=== PATIENT | male | born 1970 | race Caucasian/White ===

== ENCOUNTER 2016-12-27 21:26 | Emergency (ER) | payer OTHER ==
[~2016-12-27] VITALS: Ht 185.4 cm; Wt 114.8 kg
[2016-12-27] MEDS ORDERED: fentaNYL PF VIAL 100 MCG/2 ML VIAL IV ONE (22:00)
[2016-12-27] MEDS ORDERED: ONDANSETRON PF 4 MG/2 ML VIAL. IV ONE (22:00)
[2016-12-27 22:25] LABS: BASO # 0.1 x10^3/uL (0.0-0.2); BASO % 1 % (0-3); EOS % 1 % (0-3); HEMOGLOBIN 14.9 g/dL (13.0-17.5); LYMPH # 2.4 x10^3/uL (1.0-4.8); LYMPH % 23 % (24-48); MEAN CORPUSCULAR HEMOGLOBIN 30 pg (25-35); MEAN CORPUSCULAR HGB CONC 35 g/dL (31-37); MEAN CORPUSCULAR VOLUME 88 fL (79-100); MONO % 10 % (0-9); NEUT % 66 % (31-73); PLATELET COUNT 279 x10^3/uL (140-400); RED BLOOD COUNT 4.88 x10^6/uL (4.30-5.70); WHITE BLOOD COUNT 10.4 x10^3/uL (4.0-11.0)
[2016-12-27 22:42] LABS: CALCIUM 9.3 mg/dL (8.5-10.1); CREATININE 1.2 mg/dL (0.7-1.3); GFR 64.6
[2016-12-27 22:47] LABS: ALBUMIN 4.1 g/dL (3.4-5.0); TOTAL BILIRUBIN 1.3 mg/dL (0.2-1.0); TOTAL PROTEIN 8.1 g/dL (6.4-8.2)
[2016-12-27] MEDS ORDERED: CONTRAST GIVEN MC PRN (23:00)
[2016-12-27] MEDS ORDERED: IV NORMAL SALINE 1000ML BAG 1,000 ML IV ONE (23:00)
[2016-12-27] MEDS ORDERED: IOHEXOL 300 MG/ML 75 ML VIAL IV ONE (23:00)
--- NOTE | 2016-12-27 23:27 | RAD ---
CT study of the right knee with contrast HISTORY: Redness and pain and swelling of the right knee. Septic knee. TECHNIQUE: After IV infusion of 75 cc of Omnipaque 300, helical CT scanning of the right knee was performed. Multiplanar 2-D reconstructions were generated. PQRS compliance Statement One or more of the following individualized dose reduction techniques were utilized for this study: 1. Automated exposure control 2. Adjustment of the mA and/or kV according to patient size 3. Use of iterative reconstruction technique FINDINGS: There is no significant swelling of the suprapatellar bursa to indicate a significant joint effusion. There is mild fluid distention of the tendon sheath of the popliteus tendon extending around the proximal aspect of the tibia. There is prepatellar tendon and prepatellar soft tissue edema. There is mild fluid distention and enhancement of the prepatellar bursa consistent with bursitis. The patellar and quadriceps tendons are intact. No distended Harris's cyst is seen.No osteolytic process is seen. No acute fracture or dislocation is seen. There is mild degenerative spurring of the medial and lateral tibiofemoral joint compartments. There is mild degenerative joint space narrowing of the medial tibiofemoral joint compartment. There is mild degenerative spurring of the patellofemoral joint compartment without significant joint space narrowing. IMPRESSION: Prepatellar tendon and prepatellar soft tissue edema with prepatellar bursitis. No knee joint effusion or significant synovial enhancement is seen. No acute osseous abnormality is evident. Mild primary degenerative osteoarthritis of all 3 compartments of the left knee more prominently involving the medial tibiofemoral joint compartment. Electronically signed by: Lucien Barkley MD (12/27/2016 11:23 PM) [facility]
--- NOTE | 2016-12-27 23:27 | PHYS DOC ---
Past Medical History Past Medical History: Depression, Diabetes-Type II, High Cholesterol, Hypertension Past Surgical History: Other Additional Past Surgical Histo: L knee Alcohol Use: None Drug Use: None Adult General Chief Complaint Chief Complaint: KNEE SWELLING HPI HPI Patient is a 46 year old male presents to the emergency department with complaints of right knee pain and swelling for 4 days. Patient reports that he had a small abscess that appear to be an ingrown hair on his knee which he punctured with a razor knife. He then squeezed the area and got a small amount of pus and blood. He states the following day the knee became more swollen and red over the last 2 days has Intensified in pain and swelling. He states he has not had a fever. He has pain with range of motion. He has pain with ambulation. He was seen at urgent care yesterday and prescribed Keflex. He states today the pain is more intense and is here seeking further evaluation. Review of Systems Review of Systems Constitutional: Denies fever or chills [] Eyes: Denies change in visual acuity, redness, or eye pain [] HENT: Denies nasal congestion or sore throat [] Respiratory: Denies cough or shortness of breath [] Cardiovascular: No additional information not addressed in HPI [] GI: Denies abdominal pain, nausea, vomiting, bloody stools or diarrhea [] : Denies dysuria or hematuria [] Musculoskeletal: Right knee pain and swelling Integument: Denies rash or skin lesions [] Neurologic: Denies headache, focal weakness or sensory changes [] Endocrine: Denies polyuria or polydipsia [] Current Medications Current Medications Current Medications Medications (Trade) Dose Ordered Sig/[facility] Start Time Stop Time Status Last Admin Dose Admin Fentanyl Citrate (Fentanyl 2ml Vial) 50 mcg 1X ONCE 12/27/16 22:00 12/27/16 22:01 DC 12/27/16 22:19 50 MCG Info (Do NOT chart on this entry -- for MONITORING) 1 each PRN DAILY PRN 12/27/16 23:00 12/29/16 22:59 Iohexol (Omnipaque 300 Mg/ml) 75 ml 1X ONCE 12/27/16 23:00 12/27/16 23:01 DC Ondansetron HCl (Zofran) 4 mg 1X ONCE 12/27/16 22:00 12/27/16 22:01 DC 12/27/16 22:18 4 MG Piperacillin Sod/ Tazobactam Sod 3.375 gm/Sodium Chloride 50 ml @ 100 mls/hr 1X ONCE 12/27/16 23:45 12/28/16 00:14 Sodium Chloride 1,000 ml @ 1,000 mls/hr 1X ONCE 12/27/16 23:00 12/27/16 23:59 Allergies Allergies Allergies Coded Allergies Type Severity Reaction Last Updated Verified No Known Drug Allergies 12/27/16 No Physical Exam Physical Exam Constitutional: Well developed, well nourished, no acute distress, non-toxic appearance. [] Neck: Normal range of motion, no tenderness, supple, no stridor. [] Cardiovascular:Heart rate regular rhythm, no murmur [] Lungs & Thorax: Bilateral breath sounds clear to auscultation [] Abdomen: Bowel sounds normal, soft, no tenderness, no masses, no pulsatile masses. [] Skin: Right knee with erythema, warmth to touch. Back: No tenderness, no CVA tenderness. [] Extremities: Right knee exam moderate swelling with erythema, distal to the patella there is a 1 cm papular area. Patient has tenderness to palpate in the soft tissue, suprapatellar and infrapatellar region. He has no bony tenderness on exam. He allows for active range of motion but it is limited by pain. Right hip and right ankle exam unremarkable. Neurovascular intact distally. Neurologic: Alert and oriented X 3, normal motor function, normal sensory function, no focal deficits noted. [] Current Patient Data Vital Signs Vital Signs Date Time Temp Pulse Resp B/P (MAP) Pulse Ox O2 Delivery O2 Flow Rate FiO2 12/27/16 22:19 16 93 Room Air 12/27/16 21:30 98.5 88 98.5 Lab Values Laboratory Tests Test 12/27/16 22:10 White Blood Count 10.4 x10^3/uL (4.0-11.0) Red Blood Count 4.88 x10^6/uL (4.30-5.70) Hemoglobin 14.9 g/dL (13.0-17.5) Hematocrit 43.0 % (39.0-53.0) Mean Corpuscular Volume 88 fL (79-100) Mean Corpuscular Hemoglobin 30 pg (25-35) Mean Corpuscular Hemoglobin Concent 35 g/dL (31-37) Red Cell Distribution Width 13.0 % (11.5-14.5) Platelet Count 279 x10^3/uL (140-400) Neutrophils (%) (Auto) 66 % (31-73) Lymphocytes (%) (Auto) 23 % (24-48) L Monocytes (%) (Auto) 10 % (0-9) H Eosinophils (%) (Auto) 1 % (0-3) Basophils (%) (Auto) 1 % (0-3) Neutrophils # (Auto) 6.9 x10^3uL (1.8-7.7) Lymphocytes # (Auto) 2.4 x10^3/uL (1.0-4.8) Monocytes # (Auto) 1.0 x10^3/uL (0.0-1.1) Eosinophils # (Auto) 0.1 x10^3/uL (0.0-0.7) Basophils # (Auto) 0.1 x10^3/uL (0.0-0.2) Sodium Level 135 mmol/L (136-145) L Potassium Level 4.0 mmol/L (3.5-5.1) Chloride Level 99 mmol/L (98-107) Carbon Dioxide Level 27 mmol/L (21-32) Anion Gap 9 (6-14) Blood Urea Nitrogen 30 mg/dL (8-26) H Creatinine 1.2 mg/dL (0.7-1.3) Estimated GFR (Cockcroft-Gault) 64.6 BUN/Creatinine Ratio 25 (6-20) H Glucose Level 161 mg/dL (70-99) H Lactic Acid Level 2.0 mmol/L (0.4-2.0) Calcium Level 9.3 mg/dL (8.5-10.1) Total Bilirubin 1.3 mg/dL (0.2-1.0) H Aspartate Amino Transferase (AST) 13 U/L (15-37) L Alanine Aminotransferase (ALT) 30 U/L (16-63) Alkaline Phosphatase 89 U/L (46-116) Total Protein 8.1 g/dL (6.4-8.2) Albumin 4.1 g/dL (3.4-5.0) Albumin/Globulin Ratio 1.0 (1.0-1.7) Laboratory Tests 12/27/16 22:10 Laboratory Tests 12/27/16 22:10 EKG EKG [] Radiology/Procedures Radiology/Procedures CT right knee reviewed by Dr. Mcgraw no murmurs radiologist. Impression: Prepatellar tendon and prepatellar soft tissue edema with prepatellar bursitis no knee joint effusion or significant synovial enhancement is seen. No acute osseous abnormality is evident. Mild primary degenerative osteoarthritis of all 3 compartments of the left knee more prominently involving the medial tibiofemoral joint compartment.[] Course & Med Decision Making Course & Med Decision Making Pertinent Labs and Imaging studies reviewed. (See chart for details) []Immobilizer placed right lower extremity by nursing staff. Patient tolerated well. Neurovascular intact distally. Dragon Disclaimer Dragon Disclaimer This electronic medical record was generated, in whole or in part, using a voice recognition dictation system. Departure Departure Impression: Primary Impression: Bursitis of right knee Additional Impression: Cellulitis of oral soft tissues Referrals: JAVID CHEUNG (PCP) Patient Instructions: Bursitis, Cellulitis Additional Instructions: Wear knee immobilizer for comfort, crutches as needed for comfort. Augmentin 875 mg 1 by mouth twice a day the for 10 days. Naprosyn 375 mg twice a day when necessary and Tylenol with codeine one by mouth every 6 hours when necessary for pain #20. Please follow-up with Dr. Singh in one to 2 days. Sooner proms rise. Return to the emergency department his symptoms or concerns or worsening of current condition. Scripts Acetaminophen With Codeine (TYLENOL WITH CODEINE #3 TABLET) 1 Each Tablet 1 TAB PO PRN Q6HRS Y for PAIN, #20 TAB Prov: PARVEEN HERNANDEZ [employer] 12/27/16 Naproxen (NAPROSYN) 500 Mg Tablet 500 MG PO BID Y for PAIN, #20 TAB Prov: PARVEEN HERNANDEZ [employer] 12/27/16 Amoxicillin/Potassium Clav (AMOX TR-K CLV 875-125 MG TAB) 1 Each Tablet 1 TAB PO BID, #20 TAB Prov: PARVEEN HERNANDEZ [employer] 12/27/16 Problem Qualifiers Primary Impression: Bursitis of right knee Knee bursitis location: prepatellar bursitis Qualified Codes: M70.41 - Prepatellar bursitis, right knee PARVEEN HERNANDEZ [employer] Dec 27, 2016 23:27
[2016-12-27] MEDS ORDERED: AMOX1TAB11 PO (23:42)
[2016-12-27] MEDS ORDERED: ACET-704 PO (23:42)
[2016-12-27] MEDS ORDERED: NAPR500T PO (23:42)
[2016-12-27] MEDS ORDERED: PIPERACILLIN/TAZOBACTAM 3.375 GM in IV NORMAL SALINE 50ML 50 ML IV ONE (23:45)
[2016-12-28] VITALS: BP 107/67
[2016-12-28] MEDS ORDERED: fentaNYL PF VIAL 100 MCG/2 ML VIAL IV ONE (00:15)
== END 2016-12-28 00:40 | disposition home or self-care (01) ==
LOC: ER 21:26
DX: M70.51 Other bursitis of knee, right knee (principal); K12.2 Cellulitis and abscess of mouth
CPT/HCPCS: 29505; 36415; 73701; 80053; 83605; 85025; 87040; 96365; 96375; 96376; 99285; J2405; J2543; J3010; J7030